=== PATIENT | male | born 1930 | race Caucasian/White ===

== ENCOUNTER 2016-09-15 11:46 | Emergency (ER) | payer OTHER ==
[~2016-09-15] VITALS: Ht 167.6 cm; Wt 117.9 kg
[2016-09-15 12:01] VITALS: BP 139/52
[2016-09-15 12:46] LABS: Basophils # (auto) 0 uL; Basophils % (auto) 0.4 % (0.0-2.0); Eosinophils # (auto) 0.1 uL; Hematocrit 40.9 % (41.0-53.0); Lymphocytes # (auto) 1.3 uL; Lymphocytes % (auto) 12.9 % (10.0-50.0); Mean Corpuscular Hemoglobin 33.8 pg (28.0-32.0); Mean Corpuscular Hgb Conc. 34.1 g/dL (32.0-36.0); Mean Corpuscular Volume 99.1 fL (80.0-100.0); Mean Platelet Volume 7.8 fL (7.4-10.4); Monocytes % (auto) 9.7 % (0.0-12.0); Neutrophils # (auto) 7.6 uL; Platelet Count (auto) 258 10^3/uL (140-450); Red Cell Distribution Width 14.1 % (11.6-16.0)
[2016-09-15 13:01] LABS: INR 0.98 (0.9-1.15); Partial Thromboplastin Time 25.5 sec (22.64-33.71); Prothrombin Time 10.7 sec (9.37-12.3)
[2016-09-15 13:09] LABS: Albumin 3.2 g/dL (3.4-5.0); Anion Gap 12 (5-15); Aspartate Aminotransferase 23 U/L (15-37); BUN/Creatinine Ratio 17.2; Blood Urea Nitrogen 17 mg/dL (7-18); Calcium 9.1 mg/dL (8.5-10.1); Carbon Dioxide 29 mmol/L (21-32); Chloride 98 mmol/L (98-107); GFR African American 93 mL/min; GFR Non-African American 77 mL/min; Glucose 129 mg/dL (74-106); Potassium 4.4 mmol/L (3.5-5.1); Sodium 139 mmol/L (136-145)
[2016-09-15 13:15] LABS: Alkaline Phosphatase 98 U/L (45-117); Bilirubin, Total 0.5 mg/dL (0.2-1.0); Total Protein 7.3 g/dL (6.4-8.2)
[2016-09-15 13:17] LABS: B-Type Natriuretic Peptide 47.21 pg/mL (0-100)
[2016-09-15 13:20] LABS: Temperature: 23.5 C (20.0-25.0)
== END 2016-09-15 15:22 | disposition home or self-care (01) ==
LOC: ER 11:52
DX: S09.90XA Unspecified injury of head, initial encounter (principal); J45.909 Unspecified asthma, uncomplicated; E78.5 Hyperlipidemia, unspecified; I10 Essential (primary) hypertension; Z90.49 Acquired absence of other specified parts of digestive tract; W01.0XXA Fall on same level from slipping, tripping and stumbling without subsequent striking against object, initial encounter; Y93.89 Activity, other specified; Y92.89 Other specified places as the place of occurrence of the external cause; Y99.8 Other external cause status
CPT/HCPCS: 36415; 70450; 80053; 83880; 84484; 85025; 85610; 85730; 93005

== ENCOUNTER 2016-11-30 23:57 | Emergency (ER) | payer OTHER ==
[~2016-11-30] VITALS: Ht 157.5 cm; Wt 125.6 kg
[2016-12-01 01:03] LABS: Basophils # (auto) 0.2 uL; Basophils % (auto) 1.5 % (0.0-2.0); Eosinophils # (auto) 0 uL; Eosinophils % (auto) 0.2 % (0.0-7.0); Hematocrit 38.1 % (41.0-53.0); Hemoglobin 12.6 g/dL (13.5-17.5); Lymphocytes # (auto) 0.5 uL; Lymphocytes % (auto) 3.5 % (10.0-50.0); Mean Corpuscular Hemoglobin 32.7 pg (28.0-32.0); Mean Corpuscular Hgb Conc. 33.2 g/dL (32.0-36.0); Mean Corpuscular Volume 98.6 fL (80.0-100.0); Mean Platelet Volume 7.7 fL (7.4-10.4); Monocytes # (auto) 0.7 uL; Monocytes % (auto) 4.3 % (0.0-12.0); Neutrophils # (auto) 13.8 uL; Neutrophils % (auto) 90.5 % (37.0-80.0); Platelet Count (auto) 203 10^3/uL (140-450); Red Cell Distribution Width 13.2 % (11.6-16.0); SUSPECT SEE PRINTOUT; White Blood Cell 15.2 10^3/uL (4.4-10.8)
[2016-12-01 01:05] LABS: INR 1.1 (0.9-1.15); Partial Thromboplastin Time 25.2 sec (22.64-33.71)
[2016-12-01 01:11] LABS: Albumin 2.9 g/dL (3.4-5.0); Anion Gap 11 (5-15); BUN/Creatinine Ratio 18.4; Blood Urea Nitrogen 18 mg/dL (7-18); Calcium 8.7 mg/dL (8.5-10.1); Carbon Dioxide 28 mmol/L (21-32); Chloride 97 mmol/L (98-107); GFR African American 94 mL/min; GFR Non-African American 77 mL/min; Glucose 204 mg/dL (74-106); Magnesium 1.9 mg/dL (1.6-2.6); Potassium 3.6 mmol/L (3.5-5.1); Sodium 136 mmol/L (136-145)
[2016-12-01] MEDS ORDERED: ONDANSETRON HCL 4 MG/2 ML VIAL IV ONE (01:15)
[2016-12-01] MEDS ORDERED: MORPHINE SULFATE 4 MG/ML SYRG IV ONE (01:15)
[2016-12-01 01:22] LABS: Alkaline Phosphatase 130 U/L (45-117); Aspartate Aminotransferase 38 U/L (15-37); Total Protein 7.7 g/dL (6.4-8.2)
[2016-12-01 01:45] LABS: Temperature: 21.9 C (20.0-25.0)
[2016-12-01 03:35] LABS: Urine Bilirubin Negative (Negative); Urine Blood Negative /uL (Negative); Urine Color Yellow (Yellow); Urine Glucose Normal (Normal); Urine Ketone Negative (Negative); Urine Nitrite Negative (Negative); Urine RBC <1 /hpf (0 - 3); Urine Urobilinogen Normal (Negative)
[2016-12-01 04:55] VITALS: BP 96/46
== END 2016-12-01 06:11 | disposition home or self-care (01) ==
LOC: EDBD 23:57 → EDUNIT# 23:57 → ER 12-01
DX: R10.84 Generalized abdominal pain (principal); C18.9 Malignant neoplasm of colon, unspecified; C78.7 Secondary malignant neoplasm of liver and intrahepatic bile duct; I10 Essential (primary) hypertension; E78.00 Pure hypercholesterolemia, unspecified; J45.909 Unspecified asthma, uncomplicated; Z93.3 Colostomy status
CPT/HCPCS: 36415; 71010; 74176; 80053; 81001; 83690; 83735; 83880; 84484; 85025; 85379; 85610; 85730; 87040; 87077; 87186; 93005; 96374; 96375; 99285; J2270; J2405

== ENCOUNTER 2016-12-30 02:45 | Emergency (ER) | payer OTHER ==
[~2016-12-30] VITALS: Ht 160 cm; Wt 99.8 kg
[2016-12-30 03:16] LABS: Basophils # (auto) 0 uL; Basophils % (auto) 0.1 % (0.0-2.0); CONDITION Y; Eosinophils # (auto) 0 uL; Hematocrit 37.8 % (41.0-53.0); Hemoglobin 12.7 g/dL (13.5-17.5); Lymphocytes # (auto) 0.4 uL; Lymphocytes % (auto) 3.8 % (10.0-50.0); Mean Corpuscular Hemoglobin 33.4 pg (28.0-32.0); Mean Corpuscular Hgb Conc. 33.7 g/dL (32.0-36.0); Mean Corpuscular Volume 98.9 fL (80.0-100.0); Mean Platelet Volume 7.8 fL (6.9-10.8); Monocytes # (auto) 0.7 uL; Monocytes % (auto) 5.7 % (0.0-12.0); Neutrophils # (auto) 10.6 uL; Neutrophils % (auto) 90.4 % (37.0-80.0); Platelet Count (auto) 256 10^3/uL (140-450); Red Cell Distribution Width 14.6 % (11.8-14.3); White Blood Cell 11.7 10^3/uL (4.4-10.8)
[2016-12-30 03:29] LABS: INR 1.09 (0.9-1.15); Partial Thromboplastin Time 25.7 sec (22.64-33.71); Prothrombin Time 11.9 sec (9.37-12.3)
[2016-12-30 03:33] LABS: Albumin 2.7 g/dL (3.4-5.0); Anion Gap 9 (5-15); Aspartate Aminotransferase 173 U/L (15-37); Blood Urea Nitrogen 16 mg/dL (7-18); Calcium 8.5 mg/dL (8.5-10.1); Carbon Dioxide 29 mmol/L (21-32); Chloride 99 mmol/L (98-107); GFR African American 112 mL/min; GFR Non-African American 93 mL/min; Glucose 210 mg/dL (74-106); Potassium 3.9 mmol/L (3.5-5.1); Sodium 137 mmol/L (136-145)
[2016-12-30 03:37] LABS: Alkaline Phosphatase 328 U/L (45-117); Bilirubin, Total 2.7 mg/dL (0.2-1.0); Total Protein 7.8 g/dL (6.4-8.2)
[2016-12-30] MEDS ORDERED: cefTRIAXone 1GM/50ML D5W 50 ML IV ONE (11:15)
[2016-12-30 14:27] VITALS: BP 156/85
== END 2016-12-30 15:04 | disposition home or self-care (01) ==
LOC: EDBD 02:45 → EDUNIT# 02:45 → ER 02:53
DX: S51.811A Laceration without foreign body of right forearm, initial encounter (principal); S30.0XXA Contusion of lower back and pelvis, initial encounter; S00.03XA Contusion of scalp, initial encounter; J45.909 Unspecified asthma, uncomplicated; R53.1 Weakness; E11.65 Type 2 diabetes mellitus with hyperglycemia; I87.8 Other specified disorders of veins; E66.01 Morbid (severe) obesity due to excess calories; Z93.3 Colostomy status; L03.116 Cellulitis of left lower limb; L03.115 Cellulitis of right lower limb; E78.5 Hyperlipidemia, unspecified; R74.8 Abnormal levels of other serum enzymes; Z68.39 Body mass index [BMI] 39.0-39.9, adult; Z88.0 Allergy status to penicillin; Z85.038 Personal history of other malignant neoplasm of large intestine; I10 Essential (primary) hypertension; W18.39XA Other fall on same level, initial encounter; Y93.89 Activity, other specified; Y92.098 Other place in other non-institutional residence as the place of occurrence of the external cause; Y99.8 Other external cause status
CPT/HCPCS: 36415; 70450; 71010; 80053; 84484; 85025; 85610; 85730; 96365; 96366; 99285; J0696